=== PATIENT | female | born 1945 | race Caucasian/White ===

== ENCOUNTER 2018-11-27 10:05 | Outpatient (CLI) | payer MEDICARE, MEDICAID | END 2018-11-27 23:59 | disposition home or self-care (01) | LOC: RAD 10:05 | PROVIDERS: ATTEND Surgery | DX: R22.32 Localized swelling, mass and lump, left upper limb (principal) | CPT/HCPCS: 73220; 99156; 99157; A9585; J2250; J3010 ==